=== PATIENT | female | born 1980 | race Caucasian/White ===

== ENCOUNTER 2016-05-22 22:19 | Emergency (ER) | payer OTHER ==
[~2016-05-22 22:19] MED LIST: ADDERALL PO; BACTRIM DS TABL1 TA1; BUSPAR; MOBIC; NAPROXEN; NO MEDICATIONS; PEN-VEE K PO; ULTRAM PO; VOLTAREN75 MG PO
== END 2016-05-22 23:50 | disposition home or self-care (01) ==
LOC: SED 22:19
DX: R03.0 Elevated blood-pressure reading, without diagnosis of hypertension (principal); F17.200 Nicotine dependence, unspecified, uncomplicated
CPT/HCPCS: 99283